=== PATIENT | female | born 2000 | race Caucasian/White ===

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

== ENCOUNTER 2018-09-12 20:17 | Emergency (ER) | END 2018-09-12 22:57 | disposition home or self-care (01) ==

== ENCOUNTER 2019-01-26 16:11 | Outpatient (CLI) | payer OTHER ==
[~2019-01-26] VITALS: Ht 152.4 cm; Wt 56.9 kg
[~2019-01-26 16:11] MED LIST changes: +ACET325T33 PO; +ACET500C5 PO; -ALBU8.5H3 INH; +ALBU8.5H8 INH; +AZIT250T PO; -AZIT250T94 PO; +CETI10CA PO; +GUAI120S25 PO; +IBUP-1561 PO; -IBUP400T22 PO; +NITR-58 PO
[2019-01-26 16:14] VITALS: BP 109/61; PULSE 81; RESP 17; Ht 152.4 cm; Wt 56.9 kg
--- NOTE | 2019-01-26 20:32 | PN ---
Triage Information Date/Time 01/26/1902/10/2029 Reason for visit: Abd/pelvic pain Weeks of Gestation 27w4d /Para Diabetes: none Hypertention: none Objective Vital Signs Date Temp Pulse Resp B/P (MAP) Pulse Ox O2 O2 Flow FiO2 Time Delivery Rate 01/26/19 98.0 81 17 109/61 16:14 (77) Heart Rate: 140's Contractions: None Results/Medications Results 24 hrs Laboratory Tests Test 01/26/19 16:20 Urine Color YELLOW Urine Clarity SLIGHTLY CLOUDY A Urine pH 5.0 Urine Specific [place] 1.018 Urine Ketones NEGATIVE Urine Nitrite NEGATIVE Urine Bilirubin NEGATIVE Urine Urobilinogen NEGATIVE Urine Leukocyte Esterase 1+ H Urine Microscopic RBC 1 Urine Microscopic WBC 7 H Urine Squamous Epithelial Cells FEW Urine Hemoglobin NEGATIVE Urine Glucose NEGATIVE Urine Total Protein NEGATIVE Imaging Results CVL4.1 RADHA 10.2 RADHA 06/01 Disposition: Discharge Assessment/Plan IUP 27w4d UTI Plan discharge home with fabio Laurent with urine culture at clinic LUIS ARGUETA MD Jan 26, 2019 20:32
--- NOTE | 2019-01-26 20:43 | TRIAGE ---
OB Triage Datetime Report Generated by CPN: 01/26/2019 20:42 Datetime: 01/26/2019 19:45 Labor Evaluation Frequency: none Monitor Mode: External Duration (sec)2399: 0 Resting Tone Ephraim: Relaxed Contraction Comments: no contractions noted, some uterine irritability noted Heart Rate FHR Baseline Rate: 140 Monitor Mode: External US Variability: Moderate 6-25 bpm Accelerations: 15X15 Decelerations: None Category: Category I Comments: periods of monitor loss of contact d/t maternal movement _ movement (audible on mo nitor) Datetime: 01/26/2019 19:24 Monitor Mode: External Monitor Mode: External US Datetime: 01/26/2019 19:19 Pain Assessment Pain Scale: 7 Pain Presence: Intermittent Pain Type: Cramping Pain Location: Abdomen; Back Pain Relief Measures: Comfort Measures Datetime: 01/26/2019 18:43 Pattern: Normal: <= 5 Contractions in 10 Minutes Resting Tone Ephraim: Relaxed Contraction Comments: no uc Heart Rate FHR Baseline Rate: 135 Monitor Mode: External US Variability: Moderate 6-25 bpm Accelerations: 15X15 Decelerations: None Category: Category I Datetime: 01/26/2019 18:01 Pattern: Normal: <= 5 Contractions in 10 Minutes Resting Tone Ephraim: Relaxed Contraction Comments: no uc Heart Rate FHR Baseline Rate: 135 Monitor Mode: External US Variability: Moderate 6-25 bpm Accelerations: 15X15 Decelerations: None Category: Category I Datetime: 01/26/2019 16:56 Pattern: Normal: <= 5 Contractions in 10 Minutes Resting Tone Ephraim: Relaxed Contraction Comments: no uc Heart Rate FHR Baseline Rate: 145 Monitor Mode: External US Variability: Moderate 6-25 bpm Accelerations: 15X15 Decelerations: None Category: Category I Pain Assessment Pain Scale: 7 Pain Location: Abdomen; Back Pain Goal: 3 Datetime: 01/26/2019 16:17 Time of Arrival: 01/26/2019 16:00 EGA: 27.4 Arrived By: Ambulatory Arrived From: Home Chief Complaint: c/o back pain and abdominal pain since yesterday afternoon 2pm, pain level 7/10 Movement: Present Contractions: Denies/Absent Rupture of Membranes: Denies Vaginal Discharge: Denies Recent Sexual Intercouse: Denies Abdominal Trauma: Not Applicable Patient Complaints: Back Pain; Other Time Provider Notified: 01/26/2019 18:19 Provider Notified: Initial Plan: r/o ptl
== END 2019-01-26 20:20 | disposition home or self-care (01) ==
LOC: OBT 16:11 → L-D 16:12 → OBT 20:20
PROVIDERS: ATTEND Obstetrics & Gynecology
DX: O23.42 Unspecified infection of urinary tract in pregnancy, second trimester (principal); Z3A.27 27 weeks gestation of pregnancy
CPT/HCPCS: 76817; 76818; 81001; Z7500; G0463

== ENCOUNTER 2019-03-29 15:17 | Inpatient (IN) | payer OTHER ==
[~2019-03-29] VITALS: Ht 152.4 cm; Wt 60.3 kg
[~2019-03-29 15:17] MED LIST changes: -ACET325T33 PO; -ALBU8.5H8 INH; -AZIT250T PO; -CETI10CA PO; -GUAI120S25 PO; -IBUP-1542 PO; -IBUP-1561 PO; -METO10TA92 PO; -NITR-58 PO
[2019-03-29 15:28] VITALS: BP 112/68; Ht 152.4 cm; Wt 60.3 kg
[2019-03-29] MEDS ORDERED: LACTATED RINGER'S 1,000 ML IV ONE (16:00)
[2019-03-29] MEDS ORDERED: BETAMET NA PHOS/AC(6 MG/ML) 2 ML INJ SYG IM ONE (17:00)
[2019-03-29] MEDS ORDERED: TERBUTALINE 1 MG/ML INJ SC ONE (18:30)
[2019-03-29] MEDS ORDERED: TERBUTALINE 0 ML ONE (18:31)
--- NOTE | 2019-03-29 19:10 | TRIAGE ---
OB Triage Datetime Report Generated by CPN: 03/29/2019 19:10 Datetime: 03/29/2019 19:00 Vaginal Exam Dilatation (cms): 3.0 Effacement (%): 70 Station: -2 Exam By: S. CARTER Datetime: 03/29/2019 18:59 Membrane Status: Intact Datetime: 03/29/2019 18:58 Vaginal Exam Dilatation (cms): 3.0 Effacement (%): 70 Datetime: 03/29/2019 17:35 Stage of : OB Triage Labor Evaluation Frequency: 1-3 Monitor Mode: External Duration (sec)2399: 30-60 Pattern: Normal: <= 5 Contractions in 10 Minutes Resting Tone [place]: Relaxed Heart Rate FHR Baseline Rate: 135 Monitor Mode: External US Variability: Moderate 6-25 bpm Accelerations: 15X15 Decelerations: None Category: Category I Datetime: 03/29/2019 16:33 Stage of : OB Triage Labor Evaluation Frequency: 1-3 Monitor Mode: External Duration (sec)2399: 30-60 Pattern: Normal: <= 5 Contractions in 10 Minutes Resting Tone [place]: Relaxed Heart Rate FHR Baseline Rate: 135 Monitor Mode: External US Variability: Moderate 6-25 bpm Accelerations: 15X15 Decelerations: None Category: Category I Datetime: 03/29/2019 15:20 Stage of : OB Triage Assessment Type: Triage Maternal Assessment Level of Consciousness: Fully Conscious DTR's/Clonus: DTRs 2+; No Clonus Headache: Denies Blurred Vision: No Respiratory Effort: Unlabored; Regular Rhythm; Equal Expansion Breath Sounds, Left: Clear and Equal Breath Sounds, Right: Clear and Equal Nausea/Vomiting: Denies RUQ Epigastric Pain: Denies Lower Extremities Edema: None Degree: None Upper Extremities Edema: None Degree: None Facial Edema: None Temperature Route: Oral Fall Risk Assessment History of Falling: (0) No Secondary Diagnosis: (0) No Ambulatory Aid: (0) Bedrest/Nurse Assist IV Therapy: (0) No Gait: (0) Normal/Bedrest/Immobile Mental Status: (0) Oriented to Own Ability Fall Score: 0 Fall Risk Score Definition: No Risk: No action required Monitor Mode: External (Annotations: INIITIAL PLACEMENT) Monitor Mode: External US Pain Assessment Pain Scale: 6 Pain Presence: Intermittent Pain Type: Cramping; Pressure Pain Location: Abdomen; Back Datetime: 03/29/2019 15:19 Time of Arrival: 03/29/2019 15:11 EGA: 36.3 Arrived By: Ambulatory Arrived From: Home Chief Complaint: LOWER BACK OPAIN AND ABDOMINAL PRESSURE Movement: Present Contractions: Denies/Absent Time Contractions Began: 03/29/2019 09:00 Rupture of Membranes: Denies Vaginal Bleeding: None Vaginal Discharge: Denies Recent Sexual Intercouse: Denies Abdominal Trauma: Not Applicable Patient Complaints: Back Pain Time Provider Notified: 03/29/2019 15:48 Provider Notified: DR. KIM Initial Plan: EFM, AISHWARYA;Red ABDULLAHI IV HYDRATION, BETAMETHOSONE, CBC, UA, BPP Datetime: 01/26/2019 16:17 EGA: 27.4
--- NOTE | 2019-03-29 19:13 | TRIAGE ---
OB Triage Datetime Report Generated by CPN: 03/29/2019 19:13 Datetime: 03/29/2019 18:55 Comments: PATIENT REFUSED TERBUTILINE
[2019-03-29] MEDS ORDERED: OXYTOCIN 30 UNITS/LR 500 ML IV PRN (19:30)
[2019-03-29] MEDS ORDERED: METHYLERGONOVINE 0.2 MG INJ IM PRN (19:30)
[2019-03-29] MEDS ORDERED: BUTORPHANOL 2 MG INJ IV PRN (19:30)
[2019-03-29] MEDS ORDERED: CARBOPROST 250 MCG INJ IM PRN (19:30)
[2019-03-29] MEDS ORDERED: AMPICILLIN 2 GM/NS (PMX) 100 ML IV ONE (19:30)
[2019-03-29] MEDS ORDERED: LIDOCAINE 1% (MPF) 30 ML INJ INJ PRN (19:30)
[2019-03-29] MEDS ORDERED: OXYTOCIN 30 UNITS/LR 500 ML IV SCH ×2 (19:30)
[2019-03-29] MEDS ORDERED: MISOPROSTOL 200 MCG TAB PR PRN (19:30)
[2019-03-29] MEDS: LACTATED RINGER'S 1,000 ML IV SCH (20:22)
[2019-03-29] MEDS ORDERED: LACTATED RINGER'S 1,000 ML IV PRN (23:12)
[2019-03-29] MEDS ORDERED: IBUPROFEN 600 MG TAB PO PRN (23:30)
[2019-03-29] MEDS ORDERED: MINERAL OIL LIGHT 10 ML VIAL TOP ONE (23:30)
[2019-03-29] MEDS ORDERED: AMPICILLIN 1 GM/NS (PMX) 50 ML IV SCH (23:30)
[2019-03-30] MEDS: LACTATED RINGER'S 1,000 ML IV SCH ×2 (03:44→11:41)
[2019-03-30] MEDS ORDERED: BETAMET NA PHOS/AC(6 MG/ML) 2 ML INJ SYG IM STA (10:10)
--- NOTE | 2019-03-30 10:34 | PREAC ---
Date/Time of Note Date/Time of Note DATE: 03/30/19 TIME: 10:33 Anesthesia Eval and Record Evaluation Time Pre-Procedure Interview DATE: 03/30/19 TIME: 10:33 Age 18 Sex female NPO: 8 hrs Preoperative diagnosis labor pain Planned procedure epidural Past Medical History Past Medical History: Includes : Gestational age: (36.4) Surgery & Anesthesia Issues No known issue Meds Anticoagulation: No Beta Ba within 24 hr: No Reason Beta Ba not given: Pt. 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 Reported Medications Vits W-Ca,Fe,Fa(<1MG) ( Vitamins) 1 Tab Tablet, 1 TAB PO 01/13/15 Current Medications Lactated Ringer's 1,000 ml @ 125 mls/hr Q8H IV Last administered on 03/30/19at 03:44; Admin Dose 125 MLS/HR; Start 03/29/19 at 19:02 Butorphanol Tartrate (Stadol) 2 mg Q2H PRN IV .PAIN SCALE 6-10; Start 03/29/19 at 19:30 Lidocaine (Xylocaine 1% (Mpf)) 30 ml ONCE PRN INJ .EPISIOTOMY; Start 03/29/19 at 19:30 Oxytocin/Lactated Ringer's 500 ml @ 500 mls/hr ONCE POST IV ; Start 03/29/19 at 19:30 Oxytocin/Lactated Ringer's 500 ml @ 125 mls/hr POST IV ; Start 03/29/19 at 19:30 Oxytocin/Lactated Ringer's 500 ml @ 0 mls/hr ONCE PRN IV .VAGINAL BLEEDING; Start 03/29/19 at 19:30 Methylergonovine Maleate (Methergine) 0.2 mg ONCE PRN IM .VAGINAL BLEEDING; Start 03/29/19 at 19:30 Carboprost Tromethamine (Hemabate) 250 mcg ONCE PRN IM .VAGINAL BLEEDING; Start 03/29/19 at 19:30 Misoprostol (Cytotec) 1,000 mcg ONCE PRN [place] .VAGINAL BLEEDING; Start 03/29/19 at 19:30 Lactated Ringer's 1,000 ml @ 2,000 mls/hr Q30M PRN IV .ANESTHESIA; Start 03/29/19 at 23:12 Ibuprofen (Motrin) 600 mg ONCE PRN PO .PAIN 1-5; Start 03/29/19 at 23:30 Meds reviewed: Yes Allergies Coded Allergies: No Known Allergy (Unverified , 01/13/15) Allergies Reviewed: Yes Labs/Studies Labs Reviewed: Reviewed by anesthesiologist Result Diagram: 03/29/19 1609 Laboratory Tests 03/29/19 16:09 Blood Bank Test 03/29/19 19:25 Antibody Screen NEGATIVE Blood Type A POSITIVE Rh Immune Globulin Candidate NO test: Positive Studies: ECG (n/a), CXR (n/a) Pre-procedure Exam Last vitals Vital Signs Date Temp Pulse Resp B/P (MAP) Pulse Ox O2 O2 Flow FiO2 Time Delivery Rate 03/29/19 98.6 112/68 15:28 (83) Airway: Adequate mouth opening Mallampati: Mallampati I Teeth: Normal Lung: Normal Heart: Normal ASA Physical Status ASA physical status: 2 Emergency: None Planned Anesthetic Neuraxial: Epidural Pre-operative Attestations Prior to commencing anesthesia and surgery, the patient was re-evaluated, there was verification of: *The patient's identity *The results of appropriate recent lab work and preoperative vital signs *The above evaluation not changing prior to induction *Anesthetic plan, risk benefits, alternative and complications discussed with patient/family; questions answered; patient/family understands, accepts and wishes to proceed. OMARI SORIANO MD Mar 30, 2019 10:34
[2019-03-30] MEDS ORDERED: NALOXONE (0.4 MG/ML) INJ IV PRN (11:00)
[2019-03-30] MEDS ORDERED: FENTAnyl 2MCG/ML-ROPIV 0.2% 100 ML BAG EPI SCH (11:00)
[2019-03-30] MEDS ORDERED: MINERAL OIL LIGHT 10 ML VIAL TOP ONE (13:30)
--- NOTE | 2019-03-30 18:19 | LDN ---
Date/Time of Note Date/Time of Note DATE: 03/30/19 TIME: 18:18 Delivery Summary Normal spontaneous vaginal delivery of a viable infant over intact perineum Weeks of Gestation 36 weeks and 4 days Placenta Delivered: Spontaneously, Intact & Complete Episiotomy: No Perineal laceration: 1 Laceration repair: First-degree perineal laceration was repaired in layers using 2-0 Vicryl on a CT1 needle Anesthesia type: Epidural Estimated blood loss: 200 Sponge & Needle done & correct: Yes All needle counts correct: Yes Any foreign bodies felt in the: No Infant Delivery Information Sex Sex: female Apgars 1 Minute: 9 5 Minute: 9 Suctioning Nose & mouth suctioned at snow: Yes Delee suction performed: No Umbilical Cord Umbilical cord with: 3 Vessels Cord presentations: no nuchal cord Cord Blood was obtained: Yes Mother & Baby Disposition Disposition Mom & Baby to Maternity; Good: Yes (Mother and baby were recovered in good condition) Mom transferred to: Other (Return 18) Baby to NICU: No MELY MARIE MD Mar 30, 2019 18:19
[2019-03-30] MEDS ORDERED: KETOROLAC 30 MG INJ IV STA (18:25)
[2019-03-30] MEDS ORDERED: ACETAMINOPHEN 500 MG TAB PO STA (18:25)
--- NOTE | 2019-03-30 18:25 | HP ---
Date/Time of Note Date/Time of Note DATE: 03/30/19 TIME: 18:20 OB - History Hx of Present Free Text/Dictation 18-year-old female 3 para 2 at 36 weeks and 4 days gestation admitted complaining of onset of labor contractions started 3 PM Patient refused any sort of toco lysis Steroids were given Because she had cervical change patient was clear for possible labor Estimated Due Date: Apr 24, 2019 : 3 Para: 2 Care: Good Care Ultrasounds: Normal mid trimester US Obstetrical Complications: Other (History of ) Medical Complications: None Past Family/Social History * Past Medical, Surgical, Family and Obstetric Histories reviewed from chart. Blood Type: A+ Rubella: immune RPR/VDRL: Negative GBS Status: Negative HBsAG: Negative OB Admission Exam Vital Signs Vital Signs Vital Signs Date Temp Pulse Resp B/P (MAP) Pulse Ox O2 O2 Flow FiO2 Time Delivery Rate 03/29/19 98.6 112/68 15:28 (83) Physical Exam HEENT: WNL Heart: Rhythm Normal Lungs: Clear, Equal Abdomen: WNL Extremities: Normal Reflexes: Normal Cervical Dilatation: 2cm Effacement: 50% Station: -3 Membranes: Intact Heart Rate: 140's Accelerations: Accelerations Present Decelerations: No Decelerations Varibility: Marked Contractions on Admission: < 5 Minutes Apart Date/Time Contractions Began: 03/29/2019 at 3 PM Frequency of Contractions: 3 through 3 minutes Duration: Over 45 seconds Intensity: Mild Last 72 hours Lab Results CBC & BMP 03/29/19 16:09 OB Assessment/Plan Reason for admission: labor Other Assessment: labor 36+ weeks gestation Patient refuses any sort of tocolysis Other plan: Provided steroids Proceed with the spontaneous delivery it appears MELY MARIE MD Mar 30, 2019 18:25
[2019-03-30 21:00] VITALS: BP 128/63; RESP 18
[2019-03-30] MEDS: LACTATED RINGER'S 1,000 ML IV* SCH (21:32)
[2019-03-30] MEDS ORDERED: METHYLERGONOVINE 0.2 MG INJ IM PRN (22:00)
[2019-03-30] MEDS ORDERED: DIBUCAINE 1% 30 GM OINT TOP PRN (22:00)
[2019-03-30] MEDS ORDERED: ZOLPIDEM 5 MG TAB PO PRN (22:00)
[2019-03-30] MEDS ORDERED: CARBOPROST 250 MCG INJ IM PRN (22:00)
[2019-03-30] MEDS ORDERED: HYDROCODONE/APAP (5/325) TAB PO PRN ×2 (22:00)
[2019-03-30] MEDS ORDERED: OXYTOCIN 30 UNITS/LR 500 ML IV PRN (22:00)
[2019-03-30] MEDS ORDERED: LANOLIN HPA 1 PKT TOP PRN (22:00)
[2019-03-30] MEDS ORDERED: MISOPROSTOL 200 MCG TAB PR PRN (22:00)
[2019-03-30] MEDS: WITCH HAZEL/GLYCERIN PAD PR PRN (22:27)
[2019-03-30] MEDS: BENZOCAINE 20% 56 ML SPRAY TOP PRN (22:27)
[2019-03-30 22:30] VITALS: BP 110/63; PULSE 85; RESP 18
[2019-03-30] MEDS: CEPHALEXIN 500 MG CAP PO SCH (23:42)
[2019-03-31] MEDS: LACTATED RINGER'S 1,000 ML IV* SCH ×2 (05:32→13:32)
[2019-03-31] MEDS: CEPHALEXIN 500 MG CAP PO SCH ×3 (05:54→17:22)
[2019-03-31] MEDS: IBUPROFEN 600 MG TAB PO SCH ×4 (05:54→17:22)
[2019-03-31 08:00] VITALS: BP 116/81; RESP 18
[2019-03-31] MEDS: MAGNESIUM HYDROXIDE 30ML CUP PO SCH ×2 (09:13→20:43)
[2019-03-31] MEDS: SENNA/DOCUSATE NA (8.6MG/50MG) TAB PO SCH ×2 (09:13→20:38)
--- NOTE | 2019-03-31 15:58 | DS ---
Date/Time of Note Date/Time of Note Home today or next day DATE: 03/31/19 TIME: 15:57 Obstetrical Discharge Record Final Diagnosis Final Diagnosis: delivered Other Final Diagnosis Status post vaginal delivery Vaginal Delivery Obstetrical Delivery: Spontaneous, Laceration, Repaired Complications Labor Condition on Discharge Physical Assessment Last Vitals: See nurse's notes Voiding: Yes Bowel Movement: Yes Breast: Soft, non-tender, Filling Fundus: Firm Abdomen and Incision: Abdomen is soft with firm fundus Episiotomy: Perineum is healing well and appears clean Calf Tenderness: No Patient Condition: Good MELY MARIE MD Mar 31, 2019 15:58
--- NOTE | 2019-03-31 15:59 | PD.PPDC ---
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 Provider Information Physician Information 18-year-old female had labor ensued vaginal delivery Diagnosis [id number] Final Diagnosis: [id number] Status post labor and vaginal delivery Condition [id number] Patient Condition: Bybbg7p Good Diet Pjulk5Tu Diet: Zmdur5i Resume Regular Diet Activity/Restrictions [id number] Activity: [id number] Normal Activity May Shower [id number] Restrictions: Hktys8e Nothing in the Vagina Itfss2Vw Return to Work or School: Hmsja9o May 15, 2019 Follow-up Follow-up with Physician: 2, 4, Week/Weeks (In clinic) Return to clinic for [id number] OB Instructions: Drtwr2l Breast Tenderness Depression Comment: Pelvic rest for 6 weeks MELY MARIE MD Mar 31, 2019 15:59
[2019-03-31] MEDS ORDERED: IBUP-1542 PO (16:00)
[2019-03-31 16:45] VITALS: BP 101/62; PULSE 56; RESP 18
[2019-03-31 19:30] VITALS: BP 118/70; PULSE 59; RESP 18
[2019-04-01] MEDS: CEPHALEXIN 500 MG CAP PO SCH ×4 (02:53→18:00)
[2019-04-01] MEDS: IBUPROFEN 600 MG TAB PO SCH ×4 (02:53→18:00)
[2019-04-01 03:39] VITALS: BP 100/57; PULSE 54; RESP 17
[2019-04-01 08:00] VITALS: BP 110/72; PULSE 53; RESP 16
[2019-04-01] MEDS: SENNA/DOCUSATE NA (8.6MG/50MG) TAB PO SCH (09:00)
[2019-04-01] MEDS ORDERED: MEASLES,MUMPS,RUBELLA VACCINE INJ SC* ONE (09:00)
[2019-04-01] MEDS ORDERED: VARICELLA VACCINE LIVE/PF 1,350 UNIT/0.5 ML ML SC* ONE (09:00)
[2019-04-01] MEDS ORDERED: DIPHTH/TET/ACEL PERTUSS (ADULT) 0.5 ML VIAL IM* ONE (09:00)
[2019-04-01] MEDS: MAGNESIUM HYDROXIDE 30ML CUP PO SCH (09:00)
[2019-04-01] MEDS: WITCH HAZEL/GLYCERIN PAD PR PRN (09:35)
[2019-04-01] MEDS: BENZOCAINE 20% 56 ML SPRAY TOP PRN (09:35)
[2019-04-01 16:16] VITALS: BP 109/65; PULSE 81; RESP 18
--- NOTE | 2019-04-02 10:30 | PAC ---
Date/Time of Note Date/Time of Note DATE: 04/01/19 TIME: 10:29 Post-Anesthesia Notes Post-Anesthesia Note Last documented vital signs Vital Signs Date Temp Pulse Resp B/P (MAP) Pulse Ox O2 O2 Flow FiO2 Time Delivery Rate 04/01/19 98.1 81 18 109/65 99 16:16 (80) 04/01/19 Room Air 09:05 Activity: WNL Respiratory function: WNL Cardiovascular function: WNL Mental status: Baseline Pain reasonably controlled: Yes Hydration appropriate: Yes Nausea/Vomiting absent: No OMARI SORIANO MD Apr 02, 2019 10:30
--- NOTE | 2019-04-02 18:38 | DELSUM ---
Delivery Summary A-C Datetime Report Generated by CPN: 04/02/2019 18:38 DELIVERY PERSONNEL Tafe Teacher: Jose, [place] MATERNAL INFORMATION Delivery Anesthesia: Epidural Medications in Delivery: LR WITH 30 UNITS PITOCIN Delivery QBL (ml): 200 Placenta Cultured: No Maternal Complications: None RN Comments: Myranda Rn Ort LABOR SUMMARY EDC: 04/23/2019 00:00 No. Babies in Womb: 1 Attempted: No Labor Anesthesia: Epidural LABOR INFORMATION Reason for Induction: Not Applicable Onset of Labor: 03/29/2019 13:00 Complete Dilatation: 03/30/2019 17:15 Oxytocin: N/A Group B Beta Strep: Negative Steroids Given: Full Course Reason Steroids Not Administered: Not Applicable MEMBRANES Membranes Rupture Method: Artificial Rupture of Membranes: 03/30/2019 17:15 Length of Rupture (hr): 0.65 Amniotic Fluid Color: Clear Amniotic Fluid Amount: Moderate Amniotic Fluid Odor: None STAGES OF LABOR Stage 1 hr: 28 Stage 1 min: 15 Stage 2 hr: 0 Stage 2 min: 39 Stage 3 hr: 0 Stage 3 min: 2 Total Time in Labor hr: 28 Total Time in Labor min: 56 VAGINAL DELIVERY Laceration Extension: First Degree Laceration Type: Perineal Laceration Repair: Yes Initial Vag Sponge Count: 10 Final Vag Sponge Count: 10 Initial Vag Sharps Count: 2 Final Vag Sharps Count: 2 Sponge Count Correct: Yes; Vaginal Sweep Performed Sharps Count Correct: Yes BABY A INFORMATION Infant Delivery Date/Time: 03/30/2019 17:54 Method of Delivery: Vaginal Born in Route : No : N/A Forceps: N/A Vacuum Extraction: N/A Shoulder Dystocia : N/A SHOULDER DYSTOCIA BABY A Delivery Date/Time: 03/30/2019 17:54 PRESENTATION/POSITION BABY A Presentation: Cephalic Cephalic Presentation: Vertex Breech Presentation: N/A PLACENTA INFORMATION BABY A Placenta Delivery Time : 03/30/2019 17:56 Placenta Method of Delivery: Spontaneous Placenta Status: Delivered SCORES BABY A Heart Rate 1 min: >100 bpm Resp Effort 1 min: Good Cry Reflex Irritability 1 min: Cough/Sneeze/Pulls Away Muscle Tone 1 min: Active Motion Color 1 min: Body [place], Extremit Blue Resuscitation Effort 1 min: Tactile Stimulation SCORE 1 MIN: 9 Heart Rate 5 min: >100 bpm Resp Effort 5 min: Good Cry Reflex Irritability 5 min: Cough/Sneeze/Pulls Away Muscle Tone 5 min: Active Motion Color 5 min: Body [place], Extremit Blue Resuscitation Effort 5 min: Tactile Stimulation SCORE 5 MIN: 9 INFORMATION BABY A Gestational Age at Delivery: 36.4 Gestational Status: Late - 34- 36.6 Weeks Outcome : Liveborn Infant Condition : Stable Infant Sex: Female IDENTIFICATION/MEDS BABY A ID Band Number: [id number] ID Band Location: Right Leg; Left Arm Sensor Applied: Yes Sensor Location : Cord Clamp Vitamin K Given : Not Given Erythromycin Given: Not Given WEIGHT/LENGTH BABY A Infant Birthweight (gm): 2655 Infant Weight (lb): 5 Weight (oz): 14 Infant Length (in): 18.00 Infant Length (cm): 45.72 CORD INFORMATION BABY A No. Cord Vessels: 3 Nuchal Cord : N/A Cord Blood Taken: Yes Infant Suction: Mouth; Nose
== END 2019-04-01 18:37 | disposition home or self-care (01) | DRG 807 ==
LOC: OBT 15:17 → L-D 15:17 → OBT 19:00 → L-D 19:00 → PP1 03-30 21:02
PROVIDERS: ADMIT Obstetrics & Gynecology; ATTEND Obstetrics & Gynecology
PROC: 10E0XZZ Delivery of Products of Conception, External Approach (ICD-10-PCS; principal; 2019-03-30)
PROC: 0HQ9XZZ Repair Perineum Skin, External Approach (ICD-10-PCS; 2019-03-30)
DX: O60.13X0 Preterm labor second trimester with preterm delivery third trimester, not applicable or unspecified (principal); O70.0 First degree perineal laceration during delivery; Z37.0 Single live birth; Z3A.36 36 weeks gestation of pregnancy
CPT/HCPCS: 62322; 76818; 81001; 85025; 85610; 85730; 86592; 86850; 86900; 86901; 87340; 90716; G0463; J0702; J1885; J3010; J3105; J7120